=== PATIENT | male | born 1980 ===

== ENCOUNTER 2017-05-18 21:29 | Emergency (ER) | payer OTHER ==
--- NOTE | 2017-05-18 23:28 | EDM.PDOC ---
ED HPI GENERAL MEDICAL PROBLEM - General Chief Complaint: Skin Complaint Stated Complaint: FULL BODY RASH Time Seen by Provider: 05/18/17 22:56 Source of Information: Reports: Patient, Family () History Limitations: Reports: No Limitations - History of Present Illness INITIAL COMMENTS - FREE TEXT/NARRATIVE: The patient states that he has been experiencing a generalized pruritic urticaria on and off since January 2017. He states that he was seen in 2 different EDs in [place], one time diagnosed with contact dermatitis, another time with urticaria. He has an appointment with to see a Beehive Kiln Supervisor/ Lining Folder this coming 05/25/2017. In the meantime, he has been taking Zantac and Zyrtec. He states that this current bout of urticaria began 05/13/2017. He states that he had lip swelling last night, and his throat felt tight. It had resolved by this morning. At no time did he have dyspnea or wheezing. The patient is diabetic, and ordinarily takes metformin, lisinopril, and Lipitor. He is held all of these medications to see if that would help, but his symptoms continue. Hand Pain Score (Numeric/FACES): 2 - Related Data Allergies Allergy/AdvReac Type Severity Reaction Status Date / Time No Known Allergies Allergy Verified 05/18/17 21:58 Home Meds: Home Meds Lisinopril [Prinivil] 20 mg PO DAILY 05/18/17 [History] atorvaSTATin [Lipitor] 20 mg PO DAILY 05/18/17 [History] metFORMIN [Glucophage] 1,000 mg PO QID 05/18/17 [History] EPINEPHrine [Adrenaclick] 1 injection IM ASDIRECTED PRN #1 kit 05/19/17 [Rx] Prednisone [IJD: predniSONE] 1 tab PO QPM #7 tab 05/19/17 [Rx] Past Medical History HEENT History: Reports: Allergic Rhinitis Cardiovascular History: Reports: High Cholesterol, Hypertension Endocrine/Metabolic History: Reports: Diabetes, Type II - Past Surgical History HEENT Surgical History: Reports: Oral Surgery ([place] teeth extraction) Social & Family History - Tobacco Use Smoking Status *Q: Current Every Day Smoker Years of Tobacco use: 19 Packs/Tins Daily: 1 - Caffeine Use Caffeine Use: Reports: Soda - Alcohol Use Alcohol Use History: Yes Alcohol Use Frequency: Socially - Recreational Drug Use Recreational Drug Use: Yes Drug Use in Last 12 Months: No Recreational Drug Type: Reports: Marijuana/Hashish (last at 16 years old) - Living Situation & Occupation Living situation: Reports: , with Spouse, with Family (Daughter) 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 ED EXAM GENERAL NO PERIP PULSE - Physical Exam Exam: See Below Exam Limited By: No Limitations General Appearance: Alert, WD/WN, No Apparent Distress Eye Exam: Bilateral Eye: Normal Inspection Ears: Normal External Exam, Hearing Grossly Normal Nose: Normal Inspection, No Blood Throat/Mouth: Normal Inspection, Normal Lips (No swelling), Normal Teeth, Normal Gums, Normal Oropharynx (No oropharyngeal/uvular swelling), Normal Voice , No Airway Compromise Head: Atraumatic, Normocephalic Neck: Normal Inspection, Full Range of Motion Respiratory/Chest: No Respiratory Distress, Lungs Clear, Normal Breath Sounds, No Accessory Muscle Use. No: Wheezing Cardiovascular: Normal Peripheral Pulses, Regular Rate, Rhythm, No Gallop, No JVD, No Murmur, No Rub GI/Abdominal: Normal Bowel Sounds, Soft, Non-Tender, No Organomegaly, No Distention, No Abnormal Bruit, No Mass (Male) Exam: Deferred Rectal (Males) Exam: Deferred Back Exam: Normal Inspection, Full Range of Motion, NT Extremities: Normal Inspection, Normal Range of Motion, No Pedal Edema, Normal Capillary Refill Neurological: Alert, Oriented, Normal Cognition, No Motor/Sensory Deficits Psychiatric: Normal Affect Skin Exam: Warm, Dry, Intact, Normal Color, Rash (Generalized urticaria) Lymphatic: No Adenopathy EKG INTERPRETATION EKG Date: 05/19/17 Time: 01:40 Rhythm: NSR Rate (Beats/Min): 80 [place]: RAD-Right [place] Deviation P-Wave: Present QRS: Normal ST-T: Normal QT: Normal Comparison: NA - No Prior EKG Course - Vital Signs Last Recorded V/S: Last Vital Signs Temp 36.5 C 05/18/17 21:53 Pulse 91 05/18/17 21:53 Resp 16 05/18/17 21:53 BP 134/68 05/18/17 21:53 Pulse Ox 96 05/18/17 21:53 Orthostatic Blood Pressure [ 127/83 Standing] Orthostatic Blood Pressure [ 125/83 Sitting] Orthostatic Blood Pressure [ 119/77 Supine] - Orders/Labs/Meds Labs: Laboratory Tests 05/18/17 05/19/17 05/19/17 Range/Units 23:52 00:20 00:20 WBC 10.94 H (4.23-9.07) K/mm3 RBC 4.89 (4.63-6.08) M/mm3 Hgb 14.7 (13.7-17.5) gm/L Hct 42.9 (40.1-51.0) % MCV 87.7 (79.0-92.2) fl MCH 30.1 (25.7-32.2) pg MCHC 34.3 (32.2-35.5) g/dl RDW Std Deviation 40.2 (35.1-43.9) fL Plt Count 199 (163-337) K/mm3 MPV 10.7 (9.4-12.3) fl Neutrophils % (Manual) 65 H (40-60) % Band Neutrophils % 2 (0-10) % Lymphocytes % (Manual) 23 (20-40) % Atypical Lymphs % 3 % Monocytes % (Manual) 3 (2-10) % Eosinophils % (Manual) 4 (0.8-7.0) % Basophils % (Manual) 0 L (0.2-1.2) Platelet Estimate Adequate Plt Morphology Comment Normal RBC Morph Comment Normal Puncture Site ABG pH (7.35-7.45) ABG pCO2 (35.0-45.0) mmHg ABG pO2 (80.0-100.0) mmHg ABG HCO3 (22.0-26.0) meq/L ABG O2 Saturation (96.0-97.0) % ABG Base Excess (-2-2.0) Reece Test O2 Delivery Device Sodium 138 (136-145) mEq/L Potassium 4.1 (3.5-5.1) mEq/L Chloride 101 (98-107) mEq/L Carbon Dioxide 23 (21-32) mEq/L Anion Gap 18.1 H (5-15) BUN 13 (7-18) mg/dL Creatinine 0.9 (0.7-1.3) mg/dL Est Cr Clr Drug Dosing 131.71 mL/min Estimated GFR (MDRD) > 60 (>60) mL/min BUN/Creatinine Ratio 14.4 (14-18) Glucose 378 H (74-106) mg/dL POC Glucose 349 H (70-105) mg/dL Lactic Acid (0.4-2.0) mmol/L Calcium 8.1 L (8.5-10.1) mg/dL Magnesium 1.8 (1.8-2.4) mg/dl Total Bilirubin 0.4 (0.2-1.0) mg/dL AST TNP ALT TNP Alkaline Phosphatase 104 (46-116) U/L Total Protein 6.3 L (6.4-8.2) g/dl Albumin 3.5 (3.4-5.0) g/dl Globulin 2.8 gm/dL Albumin/Globulin Ratio 1.3 (1-2) Urine Color (Yellow) Urine Appearance (Clear) Urine pH (5.0-8.0) Ur Specific [place] (1.005-1.030) Urine Protein (Negative) Urine Glucose (UA) (Negative) Urine Ketones (Negative) Urine Occult Blood (Negative) Urine Nitrite (Negative) Urine Bilirubin (Negative) Urine Urobilinogen (0.2-1.0) Ur Leukocyte Esterase (Negative) Urine RBC (0-5) /hpf Urine WBC (0-5) /hpf Ur Epithelial Cells (0-5) /hpf Urine Bacteria (FEW) /hpf Urine Mucus (FEW) /hpf Ketones (0.0-0.3) mM 05/19/17 05/19/17 05/19/17 Range/Units 00:20 00:20 00:30 WBC (4.23-9.07) K/mm3 RBC (4.63-6.08) M/mm3 Hgb (13.7-17.5) gm/L Hct (40.1-51.0) % MCV (79.0-92.2) fl MCH (25.7-32.2) pg MCHC (32.2-35.5) g/dl RDW Std Deviation (35.1-43.9) fL Plt Count (163-337) K/mm3 MPV (9.4-12.3) fl Neutrophils % (Manual) (40-60) % Band Neutrophils % (0-10) % Lymphocytes % (Manual) (20-40) % Atypical Lymphs % % Monocytes % (Manual) (2-10) % Eosinophils % (Manual) (0.8-7.0) % Basophils % (Manual) (0.2-1.2) Platelet Estimate Plt Morphology Comment RBC Morph Comment Puncture Site Ll ABG pH 7.62 H* (7.35-7.45) ABG pCO2 38.2 (35.0-45.0) mmHg ABG pO2 127.0 H (80.0-100.0) mmHg ABG HCO3 39.7 H (22.0-26.0) meq/L ABG O2 Saturation 97.1 H (96.0-97.0) % ABG Base Excess 16.1 H (-2-2.0) Reece Test Positive O2 Delivery Device Room air Sodium (136-145) mEq/L Potassium (3.5-5.1) mEq/L Chloride (98-107) mEq/L Carbon Dioxide (21-32) mEq/L Anion Gap (5-15) BUN (7-18) mg/dL Creatinine (0.7-1.3) mg/dL Est Cr Clr Drug Dosing mL/min Estimated GFR (MDRD) (>60) mL/min BUN/Creatinine Ratio (14-18) Glucose (74-106) mg/dL POC Glucose (70-105) mg/dL Lactic Acid 1.5 (0.4-2.0) mmol/L Calcium (8.5-10.1) mg/dL Magnesium (1.8-2.4) mg/dl Total Bilirubin (0.2-1.0) mg/dL AST ALT Alkaline Phosphatase (46-116) U/L Total Protein (6.4-8.2) g/dl Albumin (3.4-5.0) g/dl Globulin gm/dL Albumin/Globulin Ratio (1-2) Urine Color (Yellow) Urine Appearance (Clear) Urine pH (5.0-8.0) Ur Specific [place] (1.005-1.030) Urine Protein (Negative) Urine Glucose (UA) (Negative) Urine Ketones (Negative) Urine Occult Blood (Negative) Urine Nitrite (Negative) Urine Bilirubin (Negative) Urine Urobilinogen (0.2-1.0) Ur Leukocyte Esterase (Negative) Urine RBC (0-5) /hpf Urine WBC (0-5) /hpf Ur Epithelial Cells (0-5) /hpf Urine Bacteria (FEW) /hpf Urine Mucus (FEW) /hpf Ketones 0.26 (0.0-0.3) mM 05/19/17 05/19/17 Range/Units 02:19 02:22 WBC (4.23-9.07) K/mm3 RBC (4.63-6.08) M/mm3 Hgb (13.7-17.5) gm/L Hct (40.1-51.0) % MCV (79.0-92.2) fl MCH (25.7-32.2) pg MCHC (32.2-35.5) g/dl RDW Std Deviation (35.1-43.9) fL Plt Count (163-337) K/mm3 MPV (9.4-12.3) fl Neutrophils % (Manual) (40-60) % Band Neutrophils % (0-10) % Lymphocytes % (Manual) (20-40) % Atypical Lymphs % % Monocytes % (Manual) (2-10) % Eosinophils % (Manual) (0.8-7.0) % Basophils % (Manual) (0.2-1.2) Platelet Estimate Plt Morphology Comment RBC Morph Comment Puncture Site ABG pH (7.35-7.45) ABG pCO2 (35.0-45.0) mmHg ABG pO2 (80.0-100.0) mmHg ABG HCO3 (22.0-26.0) meq/L ABG O2 Saturation (96.0-97.0) % ABG Base Excess (-2-2.0) Reeec Test O2 Delivery Device Sodium (136-145) mEq/L Potassium (3.5-5.1) mEq/L Chloride (98-107) mEq/L Carbon Dioxide (21-32) mEq/L Anion Gap (5-15) BUN (7-18) mg/dL Creatinine (0.7-1.3) mg/dL Est Cr Clr Drug Dosing mL/min Estimated GFR (MDRD) (>60) mL/min BUN/Creatinine Ratio (14-18) Glucose (74-106) mg/dL POC Glucose 348 H (70-105) mg/dL Lactic Acid (0.4-2.0) mmol/L Calcium (8.5-10.1) mg/dL Magnesium (1.8-2.4) mg/dl Total Bilirubin (0.2-1.0) mg/dL AST ALT Alkaline Phosphatase (46-116) U/L Total Protein (6.4-8.2) g/dl Albumin (3.4-5.0) g/dl Globulin gm/dL Albumin/Globulin Ratio (1-2) Urine Color Yellow (Yellow) Urine Appearance Clear (Clear) Urine pH 7.0 (5.0-8.0) Ur Specific [place] 1.015 (1.005-1.030) Urine Protein Negative (Negative) Urine Glucose (UA) 2+ H (Negative) Urine Ketones 1+ H (Negative) Urine Occult Blood Negative (Negative) Urine Nitrite Negative (Negative) Urine Bilirubin Negative (Negative) Urine Urobilinogen 0.2 (0.2-1.0) Ur Leukocyte Esterase Negative (Negative) Urine RBC 0-5 (0-5) /hpf Urine WBC 0-5 (0-5) /hpf Ur Epithelial Cells 0-5 (0-5) /hpf Urine Bacteria Rare (FEW) /hpf Urine Mucus Not seen (FEW) /hpf Ketones (0.0-0.3) mM Meds: Medications Discontinued Medications Generic Name Dose Route Start Last Admin Trade Name Freq PRN Reason Stop Dose Admin Sodium Chloride 1,000 mls @ 999 mls/hr 05/19/17 00:59 05/19/17 01:13 Normal Saline IV 05/19/17 01:59 999 mls/hr ONETIME ONE Administration Insulin Human Regular 10 unit 05/19/17 01:00 05/19/17 01:14 Humulin R SUBCUT 05/19/17 01:01 10 units ONETIME STA Administration Insulin Human Regular 10 unit 05/19/17 02:47 05/19/17 02:59 Humulin R IV 05/19/17 02:48 10 units ONETIME STA Administration Prednisone 60 mg 05/18/17 23:24 05/18/17 23:48 Prednisone PO 05/18/17 23:25 60 mg ONETIME STA Administration - Re-Assessments/Exams Free Text/Narrative Re-Assessment/Exam: 05/18/17 23:26 The patient has generalized urticaria, and reports some symptoms of angioedema last night. I will start the patient on a stress dose of prednisone tonight, and prescribe daily prednisone through 05/25/2017, at which time he will see a Beehive Kiln Supervisor/Lining Folder. The patient is a diabetic, ordinarily on metformin, however, he discontinued this because of his urticaria. As the patient has not checked his blood sugar recently, I will check an Accu-Chek. 05/19/17 00:08 The patient's blood glucose has returned significantly elevated at 349. I have ordered a workup for DKA. 05/19/17 00:40 The patient is not orthostatic. 05/19/17 01:58 Two-view chest radiograph appears to be grossly normal. Cardiac silhouette is within normal limits. No pulmonary vascular congestion. No pleural effusions. No focal infiltrate. No pneumothorax. Formal read per the Radiologist pending. 05/19/17 03:00 The patient received 10 units of regular insulin along with 1 L of IV fluid. About an hour after the incident, and Accu-Chek was still reading 348. I suspect that the prednisone that was given earlier is starting to affect his blood sugars. Nevertheless, the remainder of his workup is grossly unremarkable. The patient is not in DKA, and no infection was found. The plan is to discharge the patient home after he receives an additional 10 units of regular insulin now. He will call the clinic at 08:00 this morning, to make an appointment to be seen today. The clinic will need to make arrangements for the patient to receive insulin until he is off the prednisone, which will be 05/25/2017, at the earliest. In the meantime, I will e-prescribe prednisone through 05/25/2017, as well as an EpiPen. The patient will then see his Beehive Kiln Supervisor/Lining Folder on 05/25/2017. Departure - Departure Time of Disposition: 03:04 Disposition: Home, Self-Care 01 Condition: Fair Clinical Impression: Hyperglycemia due to type 2 diabetes mellitus, Allergic urticaria, Angioedema - Discharge Information Prescriptions: EPINEPHrine [Adrenaclick] 1 injection IM ASDIRECTED PRN #1 kit PRN Reason: Shortness Of Breath Prednisone [IJD: predniSONE] 1 tab PO QPM #7 tab Instructions: Angioedema, [id number], Hyperglycemia, [id number] Referrals: PCP,Not In Area [Primary Care Provider] - Jeffrey Kelley [Physician] - Radha Lee MD [Physician] - Forms: ED Department Discharge Additional Instructions: You were seen in the emergency room for a rash all of your body. On examination, you're suffering from hives. This is due to an allergic reaction. You were given a stress dose (60 mg) of prednisone in the ER. This should dramatically improve your hives. Heat makes hives worse. Try to stay as cool as tolerable. Prednisone will cause your blood sugar to rise. Call the clinic at 08:00 this morning, to make an appointment to be seen today. They will need to set you up with insulin, a glucometer, lancets, etc. You will likely need to be on insulin until you are no longer on prednisone. A prescription for prednisone has been sent to the [facility], [address], across the street from [facility]. Take one tablet each evening, with food, starting , 05/19/2017. A prescription for an epinephrine injector has also been sent to the pharmacy. Inject one injection into your anterolateral thigh if you develop difficulty breathing or throat closing. You may repeat after 15 minutes, if necessary, however, if you use the epinephrine injector, you need to go to the nearest emergency room right away. Follow-up with your Beehive Kiln Supervisor/Lining Folder this coming 05/25/2017, as previously scheduled. If any other problems, please do not hesitate to return to the ER.
[2017-05-18] MEDS: predniSONE 20 MG Tab PO STA (23:48)
[2017-05-19] MEDS: Sodium Chloride 0.9% 1,000 ML IV ONE (01:13)
[2017-05-19] MEDS: Insulin Regular, Human 100 Units/ML 3 ML Vial SUBCUT STA (01:14)
[2017-05-19] MEDS: Insulin Regular, Human 100 Units/ML 3 ML Vial IV STA (02:59)
--- NOTE | 2017-05-19 08:48 | CR ---
Chest: Two views of the chest were obtained. Comparison: No prior chest x-ray. Heart size and mediastinum are normal. Lungs are clear. Bony structures are unremarkable. Impression: 1. Nothing acute is identified on two-view chest x-ray. Diagnostic code #1
== END 2017-05-19 03:20 | disposition home or self-care (01) ==
LOC: JD.ED 21:29
DX: T78.3XXA Angioneurotic edema, initial encounter (principal); E11.65 Type 2 diabetes mellitus with hyperglycemia; E78.00 Pure hypercholesterolemia, unspecified; I10 Essential (primary) hypertension; F17.210 Nicotine dependence, cigarettes, uncomplicated; Z79.899 Other long term (current) drug therapy; Z79.84 Long term (current) use of oral hypoglycemic drugs
CPT/HCPCS: 36415; 36600; 71046; 80053; 81001; 82009; 82803; 82962; 83605; 83735; 85025; 93005; 96361; 96372; 96374; 99284; A9270; J1817; J7040; 93010